=== PATIENT | female | born 1985 | race Two or more races ===

== ENCOUNTER 2018-05-26 05:38 | Inpatient (IN) | payer OTHER ==
[~2018-05-26] VITALS: Ht 144.8 cm; Wt 59.4 kg
[2018-05-26] MEDS ORDERED: fentaNYL PF VIAL 100 MCG/2 ML VIAL IV PRN (05:45)
[2018-05-26] MEDS ORDERED: IBUPROFEN 800 MG TABLET. PO PRN (05:45)
[2018-05-26] MEDS ORDERED: BUTORPHANOL 2 MG/ML VIAL. IV PRN ×2 (05:45)
[2018-05-26] MEDS ORDERED: LIDOCAINE 1% PF 30 ML VIAL. INJ PRN (05:45)
[2018-05-26] MEDS ORDERED: TERBUTALINE 1 MG/ML VIAL. SQ PRN (05:45)
[2018-05-26] MEDS ORDERED: OXYTOCIN 30 UNIT/500 ML PREMIX 500 ML IV PRN ×3 (05:45→15:00)
[2018-05-26] MEDS ORDERED: 0.9 % SODIUM CHLORIDE 10 ML DISP.SYRIN. IV PRN ×2 (05:45→15:00)
[2018-05-26] MEDS ORDERED: AMPICILLIN SODIUM 2 GM in IV NORMAL SALINE 100ML 100 ML IV ONE (06:00)
[2018-05-26] MEDS: IV RINGERS,LACTATED 1000ML 1,000 ML IV PRN ×2 (06:31→14:59)
[2018-05-26 07:15] VITALS: BP 145/90
[2018-05-26 07:21] LABS: BASO % 1 % (0-3); EOS % 0 % (0-3); HEMATOCRIT 39.3 % (36.0-47.0); HEMOGLOBIN 13.3 g/dL (12.0-15.5); LYMPH # 2.4 x10^3/uL (1.0-4.8); LYMPH % 34 % (24-48); MEAN CORPUSCULAR HEMOGLOBIN 29 pg (25-35); MEAN CORPUSCULAR HGB CONC 34 g/dL (31-37); MEAN CORPUSCULAR VOLUME 86 fL (79-100); MONO # 0.5 x10^3/uL (0.0-1.1); MONO % 7 % (0-9); NEUT # 4.2 x10^3uL (1.8-7.7); NEUT % 59 % (31-73); PLATELET COUNT 121 x10^3/uL (140-400); RED BLOOD COUNT 4.57 x10^6/uL (3.50-5.40); RED CELL DISTRIBUTION WIDTH 14.3 % (11.5-14.5); WHITE BLOOD COUNT 7.1 x10^3/uL (4.0-11.0)
[2018-05-26] MEDS ORDERED: AMPICILLIN SODIUM 1 GM in IV NORMAL SALINE 50ML 50 ML IV SCH (10:00)
[2018-05-26 10:55] LABS: PLT ESTIMATE DECREASED (ADEQUATE)
--- NOTE | 2018-05-26 14:57 | PDOC ---
VAGINAL DELIVERY DATE DATE: 05/26/18 TIME: 14:55 : 4 Para: 3 EGA: 40 VAGINAL DELIVERY: VTX VACCUM ASSISTED: Yes NUMBER OF PULLS 2 NUMBER OF POP OFFS one MAXIMUM PRESSURE 600 mmhg PLACENTA: Spontaneous 8/ SEX: Male WEIGHT Weight [ 3290 gm] Nuchal Cord: No Amniotic Fluid: Clear PAIN: Natural EPISIOTOMY: No EXTENSION: Yes (2nd degree midline laceration) REPAIRED WITH 2-0 vicryl EBL 300 ml COMPLICATIONS none CONDITION pt. stable Signs of Intrauterine Infectio: None Shoulder Dystocia: No LANA GRAVES Jr, MD May 26, 2018 14:57
[2018-05-26] MEDS ORDERED: ACETAMINOPHEN 325 MG TABLET. PO PRN (15:00)
[2018-05-26] MEDS ORDERED: PHENYLEPH/MINERAL OIL/PETROLAT RECTAL OINTMENT 28GM TUBE. RC PRN (15:00)
[2018-05-26] MEDS ORDERED: MAG HYDROX/ALUMINUM HYD/SIMETH 30 ML ORAL.SUSP PO PRN (15:00)
[2018-05-26] MEDS ORDERED: ZOLPIDEM 5 MG TABLET. PO PRN (15:00)
[2018-05-26] MEDS ORDERED: DOCUSATE SODIUM 100 MG CAPSULE. PO PRN (15:00)
[2018-05-26] MEDS ORDERED: oxyCODONE/APAP 5/325 1 TAB TABLET PO PRN (15:00)
[2018-05-26] MEDS ORDERED: diphenhydrAMINE HCL 25 MG CAPSULE PO PRN (15:00)
[2018-05-26] MEDS ORDERED: BENZOCAINE 20% TOPICAL AEROSOL SPRAY 57GM CAN. TP PRN (15:00)
[2018-05-26] MEDS ORDERED: SIMETHICONE 80 MG TAB.CHEW PO PRN (15:00)
[2018-05-26] MEDS ORDERED: MMR per PROTOCOL. MC PRN (15:00)
[2018-05-26] MEDS ORDERED: HYDROCORTISONE 1% TOPICAL OINTMENT 30GM TUBE. TP PRN (15:00)
[2018-05-26] MEDS ORDERED: MAGNESIUM HYDROXIDE 2,400 MG/30 ML ORAL.SUSP. PO PRN (15:00)
[2018-05-26] MEDS ORDERED: FERROUS SULFATE 325 MG TABLET. PO SCH (17:00)
[2018-05-26] MEDS: IBUPROFEN 800 MG TABLET. PO PRN (17:51)
[2018-05-26 18:15] VITALS: BP 110/71
[2018-05-26 19:45] VITALS: BP 109/67
[2018-05-26 23:04] VITALS: BP 110/71
[2018-05-27 06:23] VITALS: BP 102/71
[2018-05-27 06:24] LABS: BASO % 0 % (0-3); EOS % 0 % (0-3); HEMATOCRIT 39.5 % (36.0-47.0); HEMOGLOBIN 13.3 g/dL (12.0-15.5); LYMPH # 2.3 x10^3/uL (1.0-4.8); LYMPH % 19 % (24-48); MEAN CORPUSCULAR HEMOGLOBIN 29 pg (25-35); MEAN CORPUSCULAR HGB CONC 34 g/dL (31-37); MEAN CORPUSCULAR VOLUME 86 fL (79-100); MONO # 0.7 x10^3/uL (0.0-1.1); MONO % 6 % (0-9); NEUT # 8.8 x10^3uL (1.8-7.7); NEUT % 74 % (31-73); PLATELET COUNT 108 x10^3/uL (140-400); WHITE BLOOD COUNT 11.8 x10^3/uL (4.0-11.0)
[2018-05-27] MEDS: IBUPROFEN 800 MG TABLET. PO PRN ×2 (08:56→21:34)
[2018-05-27 11:20] VITALS: BP 103/69
[2018-05-27 16:40] VITALS: BP 106/66
[2018-05-27 23:22] VITALS: BP 102/69
[2018-05-28 06:15] VITALS: BP 104/65
[2018-05-28] MEDS: IBUPROFEN 800 MG TABLET. PO PRN (15:59)
[2018-05-28 16:19] VITALS: BP 112/76
--- NOTE | 2018-06-01 10:08 | PATHOLOGY ---
[facility] Accession Number: [id number] . 01 Material submitted: . PLACENTA . 01 Clinical history: . Vaginal delivery Gestational age: 39.6 weeks FHT, multiple variables Additional history per requisition . 02 Diagnosis: 343-gram term placenta of an estimated 39.6 weeks gestation with attached membranes and attached and separate segments of umbilical cord: - Placental infarcts, multiple. MBR/05/29/2018 . 02 Comment: There is no evidence of an acute chorioamnionitis. . (JPM:raven; 05/29/2018) . 02 Electronically signed: . Romel Gonzalez MD, Pathologist NPI- [id number] . 01 Gross description: . Received in formalin labeled "Anita, Anita, placenta," is an ovoid mcallister placenta with attached membranes and umbilical cord. The trimmed placental disc weighs 343 g and measures 17.0 x 16.9 by up to 1.6 cm in greatest dimensions. The membranes are light suarez and slightly edematous in appearance, and the site of the membrane rupture is 4.8 cm from the nearest placental disc edge. The chorion and amnion are loosely attached, and slide easily over one another. The surface is intact and dusky blue-cardenas in appearance, displaying arborizing vasculature and an approximately 20% detached amnion. Suarez-brown, friable amorphous material is present on the surface, umbilical cord and in the specimen container (approximately 4 mL total volume). The trivascular umbilical cord inserts eccentrically, 4.5 cm from the nearest placental disc edge. The attached cord segment measures 21 cm in length by up to 1.5 cm in diameter, and the separate detached cord segment measures 25 cm in length by up to 1.7 cm in diameter. Both cord segments are pale suarez to dusky cardenas-suarez in appearance, and display moderate to severe helical twisting. The maternal surface cotyledons are intact and complete. Multiple light suarez possible nodules are present, ranging from 0.4 to 1.5 cm in maximum dimension and encompassing less than 1% of the total maternal surface. Focal microcalcifications are also present, encompassing less than 1% of the total maternal surface. Serial sectioning reveals spongy, dark red-brown cut surfaces. No further lesions or nodules are noted upon sectioning. The specimen is submitted representatively as follows: . A1: Umbilical cord and surface vessels A2: Membrane roll and peripheral placental segment A3: Data Collection Interviewer maternal surface microcalcifications and possible nodules A4: Full-thickness placental cross section (DAC; 05/28/2018) XDC/XDC . 02 Pathologist provided ICD-10: O43.893, Z37.0, Z3A.39 . 02 CPT . 630401 Specimen Comment: A courtesy copy of this report has been sent to Specimen Comment: [phone]. Specimen Comment: Report sent to Performed at: 01 [facility] [address] [facility] [address], [place] [id number] MD Chucho Pearce MD Phone: [phone] Performed at: 02 [facility] [address] [place], [place] [id number] MD Romel Gonzalez MD Phone: [phone]
== END 2018-05-28 18:47 | disposition home or self-care (01) | DRG 775 ==
LOC: 3 SO LND 05:38 → 3 NORTH 17:51
PROVIDERS: ADMIT Specialist; ATTEND Specialist
PROC: 10D07Z6 Extraction of Products of Conception, Vacuum, Via Natural or Artificial Opening (ICD-10-PCS; principal; 2018-05-26)
PROC: 0KQM0ZZ Repair Perineum Muscle, Open Approach (ICD-10-PCS; 2018-05-26)
DX: O70.1 Second degree perineal laceration during delivery (principal); Z37.0 Single live birth; Z3A.40 40 weeks gestation of pregnancy
CPT/HCPCS: 36415; 59070; 85025; 86592; 86850; 86900; 86901; 88305; J0290; J2590; J3010; J7120